=== PATIENT | female | born 1945 | race Caucasian/White ===

== ENCOUNTER → 2022-11-27 | Outpatient (CLI) | payer OTHER ==
[~2022-11-27] MED LIST: ALBU8.5H INH; ATOR40TA75 PO; CEPH500C PO; CLOP75TA2 PO; DOXY100T PO; IRBE150T7 PO; MAGN400T2 PO; MULT400T10 PO; POTA-136 PO; POTA-298 PO; RA A81CH3 PO; TRES1INJ SQ
[2022-11-27 12:37] LABS: BASO # 0.1 10^3/uL (0.0-0.2); BASO % 0.5 % (0.0-1.0); EOS # 0.1 10^3/uL (0.0-0.5); EOS % 1.3 % (0.0-3.0); HEMATOCRIT 45.7 % (36.0-47.0); HEMOGLOBIN 13.8 g/dl (12.0-15.5); LYMPH # 1.6 10^3/uL (1.5-5.0); LYMPH % 17.5 % (24.0-44.0); MEAN CORPUSCULAR HEMOGLOBIN 26.1 pg (27.0-33.0); MEAN CORPUSCULAR HGB CONC 30.2 g/dl (32.0-36.5); MEAN CORPUSCULAR VOLUME 86.6 fl (80.0-96.0); MONO # 0.8 10^3/uL (0.0-0.8); MONO % 9.1 % (2.0-8.0); NEUTROPHILS # 6.6 10^3/uL (1.5-8.5); NEUTROPHILS % 71.2 % (36.0-66.0); PLATELET COUNT, AUTOMATED 305 10^3/uL (150-450); RED BLOOD COUNT 5.28 10^6/uL (4.00-5.40); WHITE BLOOD COUNT 9.2 10^3/uL (4.0-10.0)
[2022-11-27 13:05] LABS: CALCIUM LEVEL 8.7 MG/DL (8.3-10.6); CHOLESTEROL RISK RATIO 2.64 (<5); CREATININE FOR GFR 1.84 MG/DL (0.55-1.30); GLOMERULAR FILTRATION RATE 28.5 (>39); HDL CHOLESTEROL 42.7 MG/DL (>40); LDL CHOLESTEROL 57.1 MG/DL (<100); NON-HDL-C 70.3 MG/DL; POTASSIUM SERUM 4.6 MMOL/L (3.5-5.1)
[2022-11-27 13:07] LABS: THYROID STIMULATING HORMONE 1.085 uIU/ML (0.55-4.78)
[2022-11-27 13:09] LABS: FREE T4 0.87 NG/DL (0.89-1.76)
[2022-11-27 13:43] LABS: HEMOGLOBIN A1c 7.6 % (4.0-6.0)
== END ==
LOC: M RAD 11:38
PROVIDERS: ATTEND Family Medicine
DX: M79.672 Pain in left foot (principal); E11.22 Type 2 diabetes mellitus with diabetic chronic kidney disease

== ENCOUNTER 2022-12-04 10:40 | Inpatient (IN) | payer OTHER ==
[2022-12-04] VITALS (23 sets, daily range): BP systolic 95–197; BP diastolic 41–91
[~2022-12-04] VITALS: Ht 160 cm; Wt 57.7 kg
[2022-12-04] MEDS ORDERED: IRBE150T7 PO (10:58)
[2022-12-04] MEDS ORDERED: TRES1INJ SQ (10:58)
[2022-12-04] MEDS ORDERED: DOXY100T PO (10:58)
[2022-12-04] MEDS ORDERED: ATOR40TA75 PO (10:58)
[2022-12-04] MEDS ORDERED: CLOP75TA2 PO (10:58)
[2022-12-04] MEDS ORDERED: ALBU8.5H INH (10:58)
[2022-12-04 13:11] LABS: BASO % 0.2 % (0.0-1.0); HEMATOCRIT 43.8 % (36.0-47.0); HEMOGLOBIN 13.6 g/dl (12.0-15.5); LYMPH # 0.6 10^3/uL (1.5-5.0); LYMPH % 2.8 % (24.0-44.0); MEAN CORPUSCULAR HEMOGLOBIN 26.2 pg (27.0-33.0); MEAN CORPUSCULAR HGB CONC 31.1 g/dl (32.0-36.5); MEAN CORPUSCULAR VOLUME 84.4 fl (80.0-96.0); MONO % 4.5 % (2.0-8.0); NEUTROPHILS # 19.2 10^3/uL (1.5-8.5); NEUTROPHILS % 91.5 % (36.0-66.0); PLATELET COUNT, AUTOMATED 364 10^3/uL (150-450); RED BLOOD COUNT 5.19 10^6/uL (4.00-5.40)
[2022-12-04 13:16] LABS: LIPASE 172 U/L (12-53)
[2022-12-04 13:20] LABS: FREE T4 0.85 NG/DL (0.89-1.76)
[2022-12-04 13:23] LABS: ALBUMIN 3.1 G/DL (3.2-5.2); ALKALINE PHOSPHATASE 144 U/L (46-116); ALT/SGPT 12 U/L (7.0-40); AST/SGOT 10 U/L (<34); BILIRUBIN,DIRECT < 0.1 MG/DL (<0.4); BILIRUBIN,TOTAL 0.2 MG/DL (0.3-1.2); BLOOD UREA NITROGEN 110 MG/DL (9-23); CARBON DIOXIDE LEVEL < 10.0 MMOL/L (20-31); CHLORIDE LEVEL 110 MMOL/L (98-107); CREATININE FOR GFR 2.99 MG/DL (0.55-1.30); GLOMERULAR FILTRATION RATE 16.3 (>39); GLUCOSE, FASTING 290 MG/DL (74-106); INR 1.11; POTASSIUM SERUM 4.6 MMOL/L (3.5-5.1); PROTHROMBIN TIME 14.5 SECONDS (12.5-14.5); SODIUM LEVEL 136 MMOL/L (136-145); TOTAL PROTEIN 7.5 G/DL (5.7-8.2)
[2022-12-04 13:24] LABS: PARTIAL THROMBOPLASTIN TIME 28.6 SECONDS (24.8-34.2)
[2022-12-04] MEDS ORDERED: NS 1,640 ML in IV 1 EA IV ONE (14:15)
[2022-12-04] MEDS ORDERED: ONDANSETRON 4MG 2ML VIAL As Ordered ONE (14:20)
[2022-12-04] MEDS ORDERED: ONDANSETRON 4MG 2ML VIAL IV ONE (14:20)
[2022-12-04 14:37] LABS: VENOUS BASE EXCESS -18.2 (-2.0-2.0); VENOUS HCO3 9.6 MMOL/L (23.0-27.0); VENOUS O2 SATURATION 64.3 % (60.0-80.0); VENOUS PARTIAL PRESSURE CO2 29.5 mmHg (38.0-50.0); VENOUS PARTIAL PRESSURE O2 34.4 mmHg (30.0-50.0); VENOUS STANDARD HCO3 10.7 MMOL/L; VENOUS TOTAL CO2 10.5 MMOL/L (24.0-28.0)
[2022-12-04] MEDS ORDERED: INSULIN IV RATE CHANGE DOCUMENTATION ML/HR XX SCH (15:00)
[2022-12-04] MEDS ORDERED: INSULIN REGULAR IN 0.9 % NACL 100 UNIT in IV 1 EA IV SCH ×4 (15:00→16:30)
[2022-12-04] MEDS ORDERED: METOCLOPRAMIDE INJ 10MG/2ML VIAL IV ONE (15:15)
[2022-12-04] MEDS ORDERED: D5W/0.9% SODIUM CHLORIDE 1,000 ML IV SCH ×2 (15:15→16:30)
[2022-12-04 15:32] LABS: CREATININE,RANDOM URINE 49.8 MG/DL
[2022-12-04] MEDS ORDERED: LevoFLOXacin IV 500 MG in IV 1 EA IV ONE (16:05)
[2022-12-04] MEDS ORDERED: hydrALAZINE 20MG/ML 1ML VIAL IV PRN (16:35)
[2022-12-04] MEDS ORDERED: MULT400T10 PO (16:40)
[2022-12-04] MEDS ORDERED: HOME MED LIST COMPLETE! XX SCH (16:40)
[2022-12-04] MEDS ORDERED: RA A81CH3 PO (16:44)
[2022-12-04 17:42] LABS: BASO # 0.1 10^3/uL (0.0-0.2); BASO % 0.3 % (0.0-1.0); HEMATOCRIT 41.9 % (36.0-47.0); HEMOGLOBIN 13.7 g/dl (12.0-15.5); LYMPH # 0.6 10^3/uL (1.5-5.0); LYMPH % 2.7 % (24.0-44.0); MEAN CORPUSCULAR HEMOGLOBIN 26.3 pg (27.0-33.0); MEAN CORPUSCULAR HGB CONC 32.7 g/dl (32.0-36.5); MEAN CORPUSCULAR VOLUME 80.4 fl (80.0-96.0); MONO # 0.9 10^3/uL (0.0-0.8); MONO % 3.8 % (2.0-8.0); NEUTROPHILS # 21.1 10^3/uL (1.5-8.5); NEUTROPHILS % 92.5 % (36.0-66.0); PLATELET COUNT, AUTOMATED 366 10^3/uL (150-450); RED BLOOD COUNT 5.21 10^6/uL (4.00-5.40); WHITE BLOOD COUNT 22.8 10^3/uL (4.0-10.0)
[2022-12-04] MEDS: PANTOPRAZOLE 40MG VIAL IV SCH (17:48)
[2022-12-04 18:11] LABS: ACETONE/KETONE 0.07 MMOL/L (0.02-0.27)
[2022-12-04 18:13] LABS: BLOOD UREA NITROGEN 106 MG/DL (9-23); CALCIUM LEVEL 8.9 MG/DL (8.3-10.6); CARBON DIOXIDE LEVEL < 10.0 MMOL/L (20-31); CHLORIDE LEVEL 115 MMOL/L (98-107); CREATININE FOR GFR 2.64 MG/DL (0.55-1.30); GLOMERULAR FILTRATION RATE 18.8 (>39); GLUCOSE, FASTING 184 MG/DL (74-106); POTASSIUM SERUM 3.9 MMOL/L (3.5-5.1); SODIUM LEVEL 141 MMOL/L (136-145)
[2022-12-04 18:17] LABS: HEMOGLOBIN A1c 7.6 % (4.0-6.0)
[2022-12-04] MEDS: INSULIN IV RATE CHANGE DOCUMENTATION ML/HR XX SCH ×3 (18:28→23:13)
[2022-12-04 18:34] LABS: OSMOLALITY SERUM 338 MOSM/KG (280-301)
[2022-12-04] MEDS ORDERED: hydrALAZINE 20MG/ML 1ML VIAL IV ONE (18:35)
[2022-12-04 19:26] LABS: VENOUS BASE EXCESS -19.1 (-2.0-2.0); VENOUS HCO3 8.7 MMOL/L (23.0-27.0); VENOUS O2 SATURATION 92.8 % (60.0-80.0); VENOUS PARTIAL PRESSURE O2 74.2 mmHg (30.0-50.0); VENOUS PH 7.124 UNITS (7.330-7.430); VENOUS STANDARD HCO3 10.6 MMOL/L; VENOUS TOTAL CO2 9.5 MMOL/L (24.0-28.0)
[2022-12-04 20:09] LABS: BLOOD UREA NITROGEN 107 MG/DL (9-23); CALCIUM LEVEL 8.8 MG/DL (8.3-10.6); CARBON DIOXIDE LEVEL < 10.0 MMOL/L (20-31); CHLORIDE LEVEL 116 MMOL/L (98-107); CREATININE FOR GFR 2.66 MG/DL (0.55-1.30); GLOMERULAR FILTRATION RATE 18.6 (>39); GLUCOSE, FASTING 152 MG/DL (74-106); POTASSIUM SERUM 4.1 MMOL/L (3.5-5.1); SODIUM LEVEL 142 MMOL/L (136-145)
[2022-12-04] MEDS: HEPARIN SOD (PORCINE) 5000UNITS/ML 1ML VIAL/SYRINGE SC SCH (21:11)
[2022-12-04] MEDS: AZTREONAM 1 GM in D5W MINI-BAG PLUS 50 ML IV SCH (21:11)
[2022-12-04] MEDS: SODIUM BICARBONATE 150 MEQ in D5W 1,000 ML IV SCH (22:30)
[2022-12-05] VITALS (26 sets, daily range): BP systolic 94–153; BP diastolic 53–68
[2022-12-05] MEDS: INSULIN IV RATE CHANGE DOCUMENTATION ML/HR XX SCH ×4 (00:06→06:55)
[2022-12-05 00:44] LABS: VENOUS BASE EXCESS -15.9 (-2.0-2.0); VENOUS HCO3 9.7 MMOL/L (23.0-27.0); VENOUS O2 SATURATION 99.2 % (60.0-80.0); VENOUS PARTIAL PRESSURE CO2 23.7 mmHg (38.0-50.0); VENOUS PARTIAL PRESSURE O2 216.6 mmHg (30.0-50.0); VENOUS PH 7.232 UNITS (7.330-7.430); VENOUS STANDARD HCO3 12.5 MMOL/L; VENOUS TOTAL CO2 10.5 MMOL/L (24.0-28.0)
[2022-12-05 01:24] LABS: BLOOD UREA NITROGEN 104 MG/DL (9-23); CALCIUM LEVEL 8.4 MG/DL (8.3-10.6); CARBON DIOXIDE LEVEL < 10.0 MMOL/L (20-31); CHLORIDE LEVEL 117 MMOL/L (98-107); GLOMERULAR FILTRATION RATE 18.3 (>39); GLUCOSE, FASTING 152 MG/DL (74-106); PHOSPHORUS LEVEL 4.8 MG/DL (2.4-5.1); POTASSIUM SERUM 4.1 MMOL/L (3.5-5.1); SODIUM LEVEL 144 MMOL/L (136-145)
[2022-12-05] MEDS: AZTREONAM 1 GM in D5W MINI-BAG PLUS 50 ML IV SCH ×2 (03:59→12:40)
[2022-12-05 04:52] LABS: VENOUS BASE EXCESS -14.4 (-2.0-2.0); VENOUS HCO3 10.3 MMOL/L (23.0-27.0); VENOUS O2 SATURATION 98.6 % (60.0-80.0); VENOUS PARTIAL PRESSURE CO2 22.1 mmHg (38.0-50.0); VENOUS PARTIAL PRESSURE O2 152.2 mmHg (30.0-50.0); VENOUS PH 7.285 UNITS (7.330-7.430); VENOUS STANDARD HCO3 13.5 MMOL/L; VENOUS TOTAL CO2 10.9 MMOL/L (24.0-28.0)
[2022-12-05 05:22] LABS: CALCIUM LEVEL 8.8 MG/DL (8.3-10.6); CREATININE FOR GFR 2.77 MG/DL (0.55-1.30); GLOMERULAR FILTRATION RATE 17.8 (>39); MAGNESIUM LEVEL 1.6 MG/DL (1.8-2.4); PHOSPHORUS LEVEL 4.4 MG/DL (2.4-5.1); POTASSIUM SERUM 3.6 MMOL/L (3.5-5.1)
[2022-12-05] MEDS: HEPARIN SOD (PORCINE) 5000UNITS/ML 1ML VIAL/SYRINGE SC SCH ×3 (06:00→20:20)
[2022-12-05] MEDS ORDERED: MAGNESIUM OXIDE 400MG TAB (MAG-OX) PO ONE (06:00)
[2022-12-05 08:32] LABS: VENOUS BASE EXCESS -12.3 (-2.0-2.0); VENOUS O2 SATURATION 98.3 % (60.0-80.0); VENOUS PARTIAL PRESSURE CO2 28.3 mmHg (38.0-50.0); VENOUS PARTIAL PRESSURE O2 143.8 mmHg (30.0-50.0); VENOUS PH 7.279 UNITS (7.330-7.430); VENOUS TOTAL CO2 13.8 MMOL/L (24.0-28.0)
[2022-12-05] MEDS ORDERED: GLUCOSE 4GM CHEW TABLET PO PRN (08:45)
[2022-12-05] MEDS ORDERED: DEXTROSE 50% 50ML SYRINGE IV PRN (08:45)
[2022-12-05] MEDS ORDERED: GLUCAGON INJ 1MG VIAL SC PRN (08:45)
[2022-12-05] MEDS ORDERED: POTASSIUM CHLORIDE 10MEQ SR TABLET PO SCH (09:00)
[2022-12-05 09:06] LABS: CALCIUM LEVEL 8.3 MG/DL (8.3-10.6); CREATININE FOR GFR 2.73 MG/DL (0.55-1.30); GLOMERULAR FILTRATION RATE 18.1 (>39); PHOSPHORUS LEVEL 4.6 MG/DL (2.4-5.1); POTASSIUM SERUM 3.6 MMOL/L (3.5-5.1)
[2022-12-05] MEDS: SODIUM BICARBONATE 150 MEQ in D5W 1,000 ML IV SCH (09:08)
[2022-12-05] MEDS: CLOPIDOGREL 75 MG TAB PO SCH (09:09)
[2022-12-05] MEDS: ASPIRIN 81MG CHEW TABLET PO SCH (09:09)
[2022-12-05] MEDS ORDERED: SODIUM BICARBONATE 150 MEQ in STERILE WATER LITER BAG 1,000 ML IV SCH (10:10)
[2022-12-05] MEDS: SODIUM BICARBONATE 150 MEQ in STERILE WATER LITER BAG 1,000 ML IV SCH (12:37)
[2022-12-05] MEDS: INSULIN LISPRO (NovoLOG) PER UNIT SC SCH ×4 (12:40→20:20)
[2022-12-05 12:51] LABS: CALCIUM LEVEL 8.5 MG/DL (8.3-10.6); CREATININE FOR GFR 2.67 MG/DL (0.55-1.30); GLOMERULAR FILTRATION RATE 18.5 (>39); POTASSIUM SERUM 3.7 MMOL/L (3.5-5.1)
[2022-12-05] MEDS: PANTOPRAZOLE 40MG VIAL IV SCH (18:31)
[2022-12-05] MEDS: ATORVASTATIN 20 MG TAB PO SCH (20:20)
[2022-12-06] VITALS (19 sets, daily range): BP systolic 112–162; BP diastolic 57–74
[2022-12-06] MEDS: AZTREONAM 1 GM in D5W MINI-BAG PLUS 50 ML IV SCH (00:04)
[2022-12-06] MEDS: SODIUM BICARBONATE 150 MEQ in STERILE WATER LITER BAG 1,000 ML IV SCH ×2 (02:26→14:43)
[2022-12-06] MEDS: HEPARIN SOD (PORCINE) 5000UNITS/ML 1ML VIAL/SYRINGE SC SCH ×3 (05:33→21:31)
[2022-12-06 06:37] LABS: CALCIUM LEVEL 7.8 MG/DL (8.3-10.6); CREATININE FOR GFR 2.57 MG/DL (0.55-1.30); GLOMERULAR FILTRATION RATE 19.4 (>39); POTASSIUM SERUM 3.3 MMOL/L (3.5-5.1)
[2022-12-06] MEDS: INSULIN LISPRO (NovoLOG) PER UNIT SC SCH ×4 (07:30→20:01)
[2022-12-06 09:28] LABS: BASO # 0.1 10^3/uL (0.0-0.2); BASO % 0.4 % (0.0-1.0); EOS # 0.3 10^3/uL (0.0-0.5); EOS % 2.2 % (0.0-3.0); LYMPH # 1.3 10^3/uL (1.5-5.0); MEAN CORPUSCULAR HEMOGLOBIN 26.5 pg (27.0-33.0); MEAN CORPUSCULAR HGB CONC 32.5 g/dl (32.0-36.5); MEAN CORPUSCULAR VOLUME 81.6 fl (80.0-96.0); MONO # 1.4 10^3/uL (0.0-0.8); NEUTROPHILS # 10.3 10^3/uL (1.5-8.5); NEUTROPHILS % 76.6 % (36.0-66.0); PLATELET COUNT, AUTOMATED 321 10^3/uL (150-450); RED BLOOD COUNT 4.07 10^6/uL (4.00-5.40); WHITE BLOOD COUNT 13.4 10^3/uL (4.0-10.0)
[2022-12-06 09:31] LABS: HEMOGLOBIN 10.8 g/dl (12.0-15.5)
[2022-12-06 09:32] LABS: HEMATOCRIT 33.2 % (36.0-47.0)
[2022-12-06 09:43] LABS: C REACTIVE PROTEIN QUANTITATIV 4.9 MG/DL (<1.0)
[2022-12-06 10:18] LABS: ERYTHROCYTE SEDIMENTATION RATE 30 mm/hr (0-30)
[2022-12-06] MEDS: POTASSIUM CHLORIDE 10MEQ SR TABLET PO SCH ×3 (10:27→20:00)
[2022-12-06] MEDS: CLOPIDOGREL 75 MG TAB PO SCH (10:27)
[2022-12-06] MEDS: ASPIRIN 81MG CHEW TABLET PO SCH (10:28)
[2022-12-06] MEDS ORDERED: ONDANSETRON 4MG 2ML VIAL IV ONE (11:45)
[2022-12-06] MEDS ORDERED: SODIUM CHLORIDE 0.9% INJ 10 ML SYR IV PRN (11:50)
[2022-12-06] MEDS: CEPHALEXIN 500 MG CAP PO SCH ×2 (13:23→20:00)
[2022-12-06] MEDS: PANTOPRAZOLE 40MG VIAL IV SCH (17:19)
[2022-12-06] MEDS: SODIUM CHLORIDE 0.9% INJ 10 ML SYR IV SCH ×2 (17:25→21:32)
[2022-12-06] MEDS: ATORVASTATIN 20 MG TAB PO SCH (20:00)
[2022-12-06] MEDS: ONDANSETRON 4MG 2ML VIAL IV PRN (21:32)
[2022-12-06] MEDS ORDERED: RAMELTEON 8 MG TAB (ROZEREM) PO ONE (22:25)
[2022-12-07] VITALS (7 sets, daily range): BP systolic 134–174; BP diastolic 36–82
[2022-12-07] MEDS: SODIUM BICARBONATE 150 MEQ in STERILE WATER LITER BAG 1,000 ML IV SCH (01:24)
[2022-12-07] MEDS ORDERED: LORazepam 0.5 MG TAB PO STA (04:20)
[2022-12-07] MEDS: HEPARIN SOD (PORCINE) 5000UNITS/ML 1ML VIAL/SYRINGE SC SCH ×3 (05:52→21:23)
[2022-12-07] MEDS: SODIUM CHLORIDE 0.9% INJ 10 ML SYR IV SCH (05:53)
[2022-12-07 06:48] LABS: BASO % 0.3 % (0.0-1.0); EOS # 0.2 10^3/uL (0.0-0.5); EOS % 1.7 % (0.0-3.0); HEMATOCRIT 35.7 % (36.0-47.0); HEMOGLOBIN 11.6 g/dl (12.0-15.5); LYMPH # 1.5 10^3/uL (1.5-5.0); MEAN CORPUSCULAR HGB CONC 32.5 g/dl (32.0-36.5); MEAN CORPUSCULAR VOLUME 79.9 fl (80.0-96.0); MONO % 8.3 % (2.0-8.0); NEUTROPHILS # 8.9 10^3/uL (1.5-8.5); NEUTROPHILS % 76.2 % (36.0-66.0); PLATELET COUNT, AUTOMATED 356 10^3/uL (150-450); RED BLOOD COUNT 4.47 10^6/uL (4.00-5.40); WHITE BLOOD COUNT 11.7 10^3/uL (4.0-10.0)
[2022-12-07 07:10] LABS: CALCIUM LEVEL 8.3 MG/DL (8.3-10.6); CREATININE FOR GFR 1.94 MG/DL (0.55-1.30); GLOMERULAR FILTRATION RATE 26.8 (>39); POTASSIUM SERUM 3.7 MMOL/L (3.5-5.1)
[2022-12-07] MEDS: INSULIN LISPRO (NovoLOG) PER UNIT SC SCH ×4 (07:30→21:00)
[2022-12-07 08:27] LABS: MAGNESIUM LEVEL 1.4 MG/DL (1.8-2.4)
[2022-12-07] MEDS: POTASSIUM CHLORIDE 10MEQ SR TABLET PO SCH ×3 (08:50→21:23)
[2022-12-07] MEDS: CEPHALEXIN 500 MG CAP PO SCH ×2 (08:51→21:23)
[2022-12-07] MEDS: CLOPIDOGREL 75 MG TAB PO SCH (08:51)
[2022-12-07] MEDS: ASPIRIN 81MG CHEW TABLET PO SCH (08:51)
[2022-12-07] MEDS ORDERED: MAG SULF 1GM/100ML (MAG RUN) 1 GM in IV 1 EA IV ONE (10:00)
[2022-12-07] MEDS: MAGNESIUM OXIDE 400MG TAB (MAG-OX) PO SCH ×2 (10:26→21:23)
[2022-12-07] MEDS ORDERED: NEOSPORIN OINT 0.9 GM PKT TOP ONE (11:15)
[2022-12-07] MEDS: ONDANSETRON 4MG 2ML VIAL IV PRN (12:11)
[2022-12-07] MEDS: PANTOPRAZOLE 40MG VIAL IV SCH (17:34)
[2022-12-07] MEDS: ATORVASTATIN 20 MG TAB PO SCH (21:23)
[2022-12-08 05:43] LABS: BASO % 0.3 % (0.0-1.0); EOS # 0.2 10^3/uL (0.0-0.5); EOS % 1.5 % (0.0-3.0); HEMATOCRIT 34.5 % (36.0-47.0); LYMPH # 1.1 10^3/uL (1.5-5.0); LYMPH % 9.1 % (24.0-44.0); MEAN CORPUSCULAR HEMOGLOBIN 26.1 pg (27.0-33.0); MEAN CORPUSCULAR HGB CONC 31.9 g/dl (32.0-36.5); MEAN CORPUSCULAR VOLUME 81.8 fl (80.0-96.0); MONO # 0.9 10^3/uL (0.0-0.8); MONO % 7.3 % (2.0-8.0); NEUTROPHILS # 9.5 10^3/uL (1.5-8.5); NEUTROPHILS % 81.1 % (36.0-66.0); PLATELET COUNT, AUTOMATED 312 10^3/uL (150-450); RED BLOOD COUNT 4.22 10^6/uL (4.00-5.40); WHITE BLOOD COUNT 11.7 10^3/uL (4.0-10.0)
[2022-12-08 05:56] LABS: CALCIUM LEVEL 8.5 MG/DL (8.3-10.6); CREATININE FOR GFR 1.86 MG/DL (0.55-1.30); GLOMERULAR FILTRATION RATE 28.1 (>39); MAGNESIUM LEVEL 1.7 MG/DL (1.8-2.4); POTASSIUM SERUM 4.1 MMOL/L (3.5-5.1)
[2022-12-08 06:00] VITALS: BP 138/71
[2022-12-08] MEDS: HEPARIN SOD (PORCINE) 5000UNITS/ML 1ML VIAL/SYRINGE SC SCH ×3 (06:03→22:00)
[2022-12-08] MEDS ORDERED: MAG SULF 1GM/100ML (MAG RUN) 1 GM in IV 1 EA IV ONE (08:00)
[2022-12-08] MEDS: INSULIN LISPRO (NovoLOG) PER UNIT SC SCH ×4 (08:13→20:30)
[2022-12-08] MEDS: CEPHALEXIN 500 MG CAP PO SCH ×2 (08:14→20:38)
[2022-12-08] MEDS: MAGNESIUM OXIDE 400MG TAB (MAG-OX) PO SCH ×2 (08:14→20:37)
[2022-12-08] MEDS: POTASSIUM CHLORIDE 10MEQ SR TABLET PO SCH ×3 (08:15→20:38)
[2022-12-08] MEDS: CLOPIDOGREL 75 MG TAB PO SCH (08:15)
[2022-12-08] MEDS: ASPIRIN 81MG CHEW TABLET PO SCH (08:15)
[2022-12-08] MEDS: ATORVASTATIN 20 MG TAB PO SCH (20:38)
[2022-12-08 21:30] VITALS: BP 156/82
[2022-12-09 06:00] VITALS: BP 130/69
[2022-12-09] MEDS: HEPARIN SOD (PORCINE) 5000UNITS/ML 1ML VIAL/SYRINGE SC SCH (06:04)
[2022-12-09 06:29] LABS: BASO % 0.4 % (0.0-1.0); EOS # 0.2 10^3/uL (0.0-0.5); EOS % 2.1 % (0.0-3.0); HEMATOCRIT 34.3 % (36.0-47.0); HEMOGLOBIN 10.6 g/dl (12.0-15.5); LYMPH # 1.2 10^3/uL (1.5-5.0); LYMPH % 11.6 % (24.0-44.0); MEAN CORPUSCULAR HEMOGLOBIN 26.2 pg (27.0-33.0); MEAN CORPUSCULAR HGB CONC 30.9 g/dl (32.0-36.5); MEAN CORPUSCULAR VOLUME 84.7 fl (80.0-96.0); MONO # 0.8 10^3/uL (0.0-0.8); MONO % 7.6 % (2.0-8.0); NEUTROPHILS % 77.8 % (36.0-66.0); PLATELET COUNT, AUTOMATED 293 10^3/uL (150-450); RED BLOOD COUNT 4.05 10^6/uL (4.00-5.40); WHITE BLOOD COUNT 10.3 10^3/uL (4.0-10.0)
[2022-12-09 06:49] LABS: CALCIUM LEVEL 8.5 MG/DL (8.3-10.6); CREATININE FOR GFR 1.63 MG/DL (0.55-1.30); GLOMERULAR FILTRATION RATE 32.7 (>39); POTASSIUM SERUM 4.3 MMOL/L (3.5-5.1)
[2022-12-09] MEDS: INSULIN LISPRO (NovoLOG) PER UNIT SC SCH (08:21)
[2022-12-09] MEDS: MAGNESIUM OXIDE 400MG TAB (MAG-OX) PO SCH (08:22)
[2022-12-09] MEDS: CEPHALEXIN 500 MG CAP PO SCH (08:22)
[2022-12-09] MEDS: POTASSIUM CHLORIDE 10MEQ SR TABLET PO SCH (08:22)
[2022-12-09] MEDS: ASPIRIN 81MG CHEW TABLET PO SCH (08:22)
[2022-12-09] MEDS: CLOPIDOGREL 75 MG TAB PO SCH (08:22)
[2022-12-09] MEDS ORDERED: MAGN400T2 PO ×2 (09:08→10:34)
[2022-12-09] MEDS ORDERED: CEPH500C PO ×2 (09:08→10:34)
[2022-12-09] MEDS ORDERED: POTA-298 PO (09:08)
[2022-12-09] MEDS ORDERED: MAG SULF 1GM/100ML (MAG RUN) 1 GM in IV 1 EA IV ONE (10:00)
[2022-12-09] MEDS ORDERED: POTA-136 PO (10:34)
== END 2022-12-09 11:10 | disposition home health service (06) | DRG 872 ==
LOC: M ED 10:40 → M ED INP 16:26 → ENRESERV 16:48 → M ICU 17:34 → M PCU 12-05 16:43 → M MS5PR 12-07 11:48
PROVIDERS: ADMIT Internal Medicine; ATTEND General Practice
PROC: 02HV33Z Insertion of Infusion Device into Superior Vena Cava, Percutaneous Approach (ICD-10-PCS; principal; 2022-12-06)
DX: A41.9 Sepsis, unspecified organism (principal); N17.9 Acute kidney failure, unspecified; N39.0 Urinary tract infection, site not specified; E87.20 Acidosis, unspecified; N13.30 Unspecified hydronephrosis; I12.9 Hypertensive chronic kidney disease with stage 1 through stage 4 chronic kidney disease, or unspecified chronic kidney disease; J45.909 Unspecified asthma, uncomplicated; N18.9 Chronic kidney disease, unspecified; Z79.4 Long term (current) use of insulin; M19.90 Unspecified osteoarthritis, unspecified site; R91.1 Solitary pulmonary nodule; I69.311 Memory deficit following cerebral infarction; E11.65 Type 2 diabetes mellitus with hyperglycemia; Z79.899 Other long term (current) drug therapy; Z88.0 Allergy status to penicillin

== ENCOUNTER → 2022-12-04 | Outpatient (CLI) | payer OTHER | LOC: M RAD 10:12 | PROVIDERS: ATTEND Family Medicine | DX: F05 Delirium due to known physiological condition (principal) ==

== ENCOUNTER → 2022-12-17 | Outpatient (REF) | payer OTHER ==
[2022-12-17 13:54] LABS: CALCIUM LEVEL 8.7 MG/DL (8.3-10.6); CREATININE FOR GFR 2.58 MG/DL (0.55-1.30); GLOMERULAR FILTRATION RATE 19.3 (>39); MAGNESIUM LEVEL 1.8 MG/DL (1.8-2.4); POTASSIUM SERUM 5.9 MMOL/L (3.5-5.1)
== END ==
LOC: M LAB REF 12:24
PROVIDERS: ATTEND General Practice
DX: N18.9 Chronic kidney disease, unspecified (principal); E87.6 Hypokalemia; E83.42 Hypomagnesemia